=== PATIENT | male | born 1985 | race Caucasian/White ===

== ENCOUNTER 2019-04-18 14:04 | Emergency (ER) | payer OTHER ==
--- NOTE | 2019-04-18 14:16 | PDOC ---
Rapid Medical Evaluation Chief Complaint: Chest Pain Time Seen by Provider: 04/18/19 14:08 Medical Evaluation: Vital Signs Temp Pulse Resp BP Pulse Ox 97.7 F 76 19 105/64 95 04/18/19 14:11 04/18/19 14:11 04/18/19 14:11 04/18/19 14:11 04/18/19 14:11 04/18/19 14:13 I have performed a brief in-person evaluation of this patient. The patient presents with a chief complaint of: chest pain since this AM upon wake. Patient report pain to middle of chest when laying down or getting up from laying position. Pt report feeling gas bubble in the chest. Denies SOB, dizzines, N/V, fever, chills, numbness or tingling sensation Pertinent physical exam findings: reproduceable mild midsternum tenderness . heart RRR. lungs CTAB I have ordered the following: ekg, cbc, cmp, cardiac profile. CXR The patient will proceed to the ED for further evaluation. Discharge Disposition - Diagnosis Costal chondritis - Discharge Dispostion Condition at time of disposition: Stable - Referrals - Patient Instructions - Post Discharge Activity
[2019-04-18 14:30] VITALS: BP 105/64; PULSE 76; TEMP 97.7; BMI 22.0
[2019-04-18 14:46] LABS: BASO % 0.3 % (0-2.0); EOS % 0.3 % (0-4.5); HEMATOCRIT 40.2 % (35.4-49); HEMOGLOBIN 13.6 GM/dL (11.7-16.9); LYMPH % 29.5 % (8-40); MCH 29.8 pg (25.7-33.7); MCHC 33.7 g/dl (32.0-35.9); MEAN CELL VOLUME 88.5 fl (80-96); MEAN PLT VOLUME 8.2 fl (7.5-11.1); MONO % 7.9 % (3.8-10.2); PLATELET COUNT 231 K/MM3 (134-434); RBC 4.54 M/mm3 (4.00-5.60); RDW 13.2 % (11.9-15.9); WHITE BLOOD COUNT 5.7 K/mm3 (4.0-10.0)
[2019-04-18 15:05] LABS: ALBUMIN 4.3 g/dl (3.4-5.0); ALK PHOS 49 U/L (45-117); ANION GAP 10 MMOL/L (8-16); BLOOD UREA NITROGEN 11.4 mg/dL (7-18); CALCIUM 9.5 mg/dL (8.5-10.1); CHLORIDE 102 mmol/L (98-107); CO2 27 mmol/L (21-32); CREATININE 0.9 mg/dL (0.55-1.3); GLUCOSE,RANDOM 89 mg/dL (74-106); POTASSIUM 4.2 mmol/L (3.5-5.1); SGOT/AST 20 U/L (15-37); SGPT/ALT 20 U/L (13-61); SODIUM 139 mmol/L (136-145); TOT PROT 8.1 g/dl (6.4-8.2)
[2019-04-18] MEDS ORDERED: KETOROLAC TROMETHAMINE 60 MG/2 ML VIAL IM ONE (15:11)
[2019-04-18] MEDS ORDERED: KETOROLAC TROMETHAMINE 60 MG/2 ML VIAL ONE (15:31)
--- NOTE | 2019-04-18 15:37 | PDOC ---
History of Present Illness - General Chief Complaint: Chest Pain Stated Complaint: CHEST PAIN Time Seen by Provider: 04/18/19 14:08 History Source: Patient Exam Limitations: No Limitations - History of Present Illness Initial Comments: 04/18/19 15:35 33-year-old female to the emergency room with complaints of right-sided chest pain since yesterday morning upon awakening. He states pain is worsened with movement and denies any palpitations shortness of breath fever, chills or cough. Patient states has been on estrogen for hormone replacement transitioning to a female for the past 2 years with no additional change in dosing. Timing/Duration: intermittent Severity: moderate Associated Symptoms: reports: chest pain Past History - Travel Traveled outside of the country in the last 30 days: No Close contact w/someone who was outside of country & ill: No - Past Medical History Allergies/Adverse Reactions: Allergies Allergy/AdvReac Type Severity Reaction Status Date / Time aripiprazole [From Abilify] Allergy Verified 04/18/19 14:14 cinnamon Allergy Verified 04/18/19 14:14 COPD: No Other medical history: denies - Suicide/Smoking/Psychosocial Hx Smoking History: Current every day smoker Number of Cigarettes Smoked Daily: 4 Information on smoking cessation initiated: No Hx Alcohol Use: No Drug/Substance Use Hx: No Patient Lives Alone: No Lives with/in: spouse/SO Review of Systems - Review of Systems Able to Perform ROS?: No Is the patient limited Serbian proficient: No Constitutional: No: Symptoms Reported HEENTM: No: Symptoms Reported Respiratory: No: Symptoms reported Cardiac (ROS): Yes: Chest Pain. No: Chest Tightness ABD/GI: No: Symptoms Reported : No: Symptoms Reported Musculoskeletal: Yes: Muscle Pain (rt chest) Integumentary: No: Symptoms Reported Neurological: No: Symptoms reported Endocrine: No: Symptoms Reported Hematologic/Lymphatic: No: Symptoms Reported *Physical Exam - Vital Signs Last Vital Signs Temp Pulse Resp BP Pulse Ox 97.7 F 76 19 105/64 95 04/18/19 14:11 04/18/19 14:11 04/18/19 14:11 04/18/19 14:11 04/18/19 14:11 - Physical Exam General Appearance: Yes: Nourished, Appropriately Dressed. No: Apparent Distress HEENT: negative: Pale Conjunctivae Neck: positive: Normal Thyroid Respiratory/Chest: positive: Chest Tender (right chest wall over third intercostal space near the midclavicular line), Lungs Clear, Normal Breath Sounds. negative: Respiratory Distress, Accessory Muscle Use Cardiovascular: positive: Regular Rhythm, Regular Rate. negative: Murmur Gastrointestinal/Abdominal: positive: Soft. negative: Tenderness Musculoskeletal: negative: CVA Tenderness Extremity: positive: Normal Inspection Integumentary: positive: Normal Color, Warm, Moist Neurologic: positive: Motor Strength 5/5 (ambulatory) Heart Score/ECG Review - ECG Intrepretation Rhythm: Regular Rhythm (Rate 78, no ST elevation or depression) ED Treatment Course - LABORATORY CBC & Chemistry Diagram: 04/18/19 14:25 04/18/19 14:25 - ADDITIONAL ORDERS Additional order review: Laboratory Results 04/18/19 14:25 Sodium 139 Potassium 4.2 Chloride 102 Carbon Dioxide 27 Anion Gap 10 BUN 11.4 Creatinine 0.9 Est GFR (CKD-EPI)AfAm 127.80 Est GFR (CKD-EPI)NonAf 110.27 Random Glucose 89 Calcium 9.5 Total Bilirubin 1.0 AST 20 ALT 20 Alkaline Phosphatase 49 Creatine Kinase 168 Creatine Kinase Index 1.1 CK-MB (CK-2) 1.9 Troponin I < 0.02 Total Protein 8.1 Albumin 4.3 04/18/19 14:25 RBC 4.54 MCV 88.5 MCHC 33.7 RDW 13.2 MPV 8.2 Neutrophils % 62.0 Lymphocytes % 29.5 Monocytes % 7.9 Eosinophils % 0.3 Basophils % 0.3 Medical Decision Making - Medical Decision Making 04/18/19 15:00 CC: rt Sided chest wall worsen with movement since yesterday upon awakening. Exam: Reproducible right-sided chest pain Plan: patient had labs x-ray and EKG ordered from [facility]. Patient to receive Toradol IM. Patient requesting to go home along with medical transportation. *DC/Admit/Observation/Transfer Diagnosis at time of Disposition: Costal chondritis - Discharge Dispostion Disposition: HOME Condition at time of disposition: Good - Referrals - Patient Instructions Printed Discharge Instructions: DI for Atypical Chest Pain Additional Instructions: Please take tylenol for pain as needed. Avoid movements which trigger pain - Post Discharge Activity
--- NOTE | 2019-04-19 11:38 | EKG ---
Test Reason : Blood Pressure : / mmHG Vent. Rate : 071 BPM Atrial Rate : 071 BPM P-R Int : 200 ms QRS Dur : 094 ms QT Int : 372 ms P-R-T Axes : 051 036 013 degrees QTc Int : 404 ms NORMAL SINUS RHYTHM MODERATE VOLTAGE CRITERIA FOR LVH, MAY BE NORMAL VARIANT BORDERLINE ECG NO PREVIOUS ECGS AVAILABLE Confirmed by ROZ GILL MD ([id number]) on 04/19/2019 11:38:36 AM Referred By: Confirmed By:ROZ GILL MD
== END 2019-04-18 17:14 | disposition home or self-care (01) ==
LOC: JER 14:04
PROC: 3E0233Z Introduction of Anti-inflammatory into Muscle, Percutaneous Approach (ICD-10-PCS; principal; 2019-04-18)
DX: M94.0 Chondrocostal junction syndrome [Tietze] (principal); F17.210 Nicotine dependence, cigarettes, uncomplicated
CPT/HCPCS: 36415; 71046-TC-FY; 80053; 82550; 82553; 84484; 85025; 93005; 93010; 96372; 99283-25